=== PATIENT | female | born 1955 | race Caucasian/White ===

== ENCOUNTER 2016-09-27 22:47 | Emergency (ER) | payer MEDICAID, OTHER ==
[~2016-09-27] VITALS: Ht 170.2 cm; Wt 70.0 kg
[~2016-09-27 22:47] MED LIST: HYDR-2768 PO; NORV10TA PO; OXYC-360 PO; TAMS0.4C67 PO
[2016-09-27 23:06] VITALS: PULSE 70; RESP 16; TEMP 98.2; O2SAT 96
[2016-09-27] MEDS ORDERED: DULO20 PO (23:06)
[2016-09-27] MEDS ORDERED: HYDR25TA5 PO (23:06)
[2016-09-27] MEDS ORDERED: AMLO10 PO (23:06)
[2016-09-27 23:08] VITALS: BP 168/84; PULSE 69; RESP 14; TEMP 98.2; O2SAT 97
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
[2016-09-28 00:33] LABS: AUTOMATED NEUTROPHIL # 3.3 TH/MM3 (1.8-7.7); BASOPHIL # 0.1 TH/MM3 (0-0.2); BASOPHIL % 1.1 % (0.0-2.0); EOSINOPHIL # 0.1 TH/MM3 (0-0.4); EOSINOPHIL % 2.2 % (0.0-4.0); HEMATOCRIT 43.9 % (35.0-46.0); HEMO FLAGS DIFF FINAL; LYMPHOCYTE # 1.5 TH/MM3 (1.0-4.8); MEAN CELL VOLUME 106.1 FL (80.0-100.0); MEAN CORPUSCULAR HEMOGLOBIN 37.5 PG (27.0-34.0); MEAN CORPUSCULAR HGB CONC 35.4 % (32.0-36.0); MONO % 9.2 % (0.0-8.0); NEUT % 60.5 % (16.0-70.0); PLATELET COUNT 200 TH/MM3 (150-450); RED BLOOD COUNT 4.14 MIL/MM3 (4.00-5.30); RED CELL DISTRIBUTION WIDTH 14.8 % (11.6-17.2); WHITE BLOOD COUNT 5.5 TH/MM3 (4.0-11.0)
[2016-09-28 00:44] LABS: ALT (GPT) 26 U/L (10-53); ANION GAP 7 MEQ/L (5-15); APTT (PATIENT) 26.9 SEC (24.3-30.1); AST (GOT) 20 U/L (15-37); BICARBONATE 31.6 MEQ/L (21.0-32.0); BLOOD UREA NITROGEN 22 MG/DL (7-18); CHLORIDE 100 MEQ/L (98-107); GLOMERULAR FILTRATION RATE 63 ML/MIN (>89); POTASSIUM 3.2 MEQ/L (3.5-5.1); PROTHROMBIN TIME - PATIENT 10.5 SEC (9.8-11.6); SODIUM (NA) 139 MEQ/L (136-145)
[2016-09-28 00:47] LABS: ALKALINE PHOSPHATASE 93 U/L (45-117); TOTAL BILIRUBIN ADULT 0.6 MG/DL (0.2-1.0)
[2016-09-28] MEDS ORDERED: IBUP-1129 PO (01:24)
[2016-09-28 01:39] VITALS: BP 168/78
== END 2016-09-28 01:40 | disposition home or self-care (01) ==
LOC: NEPC 22:47
DX: S10.93XA Contusion of unspecified part of neck, initial encounter (principal); Y04.2XXA Assault by strike against or bumped into by another person, initial encounter; I10 Essential (primary) hypertension; K74.60 Unspecified cirrhosis of liver; F17.210 Nicotine dependence, cigarettes, uncomplicated
CPT/HCPCS: 70450; 70486; 72125; 80053; 85025; 85610; 85730; 99285